=== PATIENT | male | born 1975 | race Hispanic/Latino ===

== ENCOUNTER 2018-01-07 17:27 | Day surgery (SDC) | payer BC ==
[2018-01-07] MEDS ORDERED: ACETAMINOPHEN 325 MG TABLET PO SCH (19:00)
[2018-01-07] MEDS ORDERED: NA CHLORIDE 0.9% 250 ML ONE (23:41)
== END 2018-01-08 13:35 | disposition home or self-care (01) ==
LOC: DS 17:27 → 4TH 18:19 → DS 01-08 13:35
PROVIDERS: ATTEND Internal Medicine Hematology & Oncology
PROC: 30233N1 Transfusion of Nonautologous Red Blood Cells into Peripheral Vein, Percutaneous Approach (ICD-10-PCS; principal; 2018-01-07)
DX: D61.9 Aplastic anemia, unspecified (principal); D61.818 Other pancytopenia
CPT/HCPCS: 36415; 85014; 85018; 86850; 86900; 86901; P9040